=== PATIENT | male | born 1990 | race Caucasian/White ===

== ENCOUNTER 2020-08-22 04:02 | Emergency (ER) | payer MEDICARE ==
[~2020-08-22] VITALS: Ht 185.4 cm; Wt 147.0 kg
[2020-08-22] MEDS ORDERED: PREDNISONE 10 MG TAB ONE (04:13)
[2020-08-22] MEDS ORDERED: FAMOTIDINE 20 MG TAB ONE (04:13)
[2020-08-22] MEDS ORDERED: PREDNISONE 10 MG TAB PO ONE (04:15)
[2020-08-22] MEDS ORDERED: FAMOTIDINE 20 MG TAB PO ONE (04:15)
== END 2020-08-22 04:40 | disposition home or self-care (01) ==
LOC: ER 04:12
DX: T78.1XXA Other adverse food reactions, not elsewhere classified, initial encounter (principal)
CPT/HCPCS: 99283; J7512

== ENCOUNTER 2020-10-29 23:10 | Emergency (ER) | payer MEDICARE ==
[~2020-10-29] VITALS: Ht 185.4 cm; Wt 158.8 kg
[2020-10-30] MEDS ORDERED: DEXAMETHASONE SOD PHOS INJ 4 MG/ML VIAL IV ONE
[2020-10-30] MEDS ORDERED: HYDROCODONE/APAP 5MG-325MG TAB PO ONE
[2020-10-30] MEDS ORDERED: DEXAMETHASONE SOD PHOS INJ 4 MG/ML VIAL ONE (00:13)
[2020-10-30] MEDS ORDERED: HYDROCODONE/APAP 5MG-325MG TAB ONE (00:13)
== END 2020-10-30 00:55 | disposition home or self-care (01) ==
LOC: FSED 23:55
DX: M54.16 Radiculopathy, lumbar region (principal); F32.9 Major depressive disorder, single episode, unspecified; F98.8 Other specified behavioral and emotional disorders with onset usually occurring in childhood and adolescence
CPT/HCPCS: 81003; 99283; J1100

== ENCOUNTER 2020-12-04 23:42 | Emergency (ER) | payer MEDICARE ==
[~2020-12-04] VITALS: Ht 185.4 cm; Wt 158.8 kg
[2020-12-05 00:54] LABS: BASOPHILS # (AUTO) 0.1 (0.0-0.1); BASOPHILS % 0.4 % (0.0-1.0); EOSINOPHILS # (AUTO) 0.4 (0.0-0.4); EOSINOPHILS % 3.9 % (0.0-6.0); HEMATOCRIT 46.6 % (38.2-49.6); HEMOGLOBIN 15.4 g/dL (14.0-18.0); LYMPHOCYTES # (AUTO) 2.5 (1.0-3.2); LYMPHOCYTES % 22.4 % (18.0-39.1); MEAN CORPUSCULAR HEMOGLOBIN 29.4 pg (28-32); MEAN CORPUSCULAR VOLUME 88.9 fL (81-99); MONOCYTES # (AUTO) 0.8 (0.2-0.8); MONOCYTES % 6.6 % (4.4-11.3); NEUTROPHILS # (AUTO) 7.4 (2.1-6.9); NEUTROPHILS % 65.7 % (38.7-80.0); PLATELET COUNT 291 x10e3/uL (140-360); RED BLOOD COUNT 5.24 x10e6/uL (4.3-5.7); RED CELL DISTRIBUTION WIDTH 13.4 % (11.7-14.4)
[2020-12-05 00:55] LABS: CLARITY,URINE CLEAR (CLEAR); COLOR,URINE YELLOW (YELLOW); KETONES,URINE NEGATIVE (NEGATIVE); LEUKOCYTE ESTERASE ,URINE TRACE (NEGATIVE); NITRITE,URINE NEGATIVE (NEGATIVE); PROTEIN,URINE DIPSTICK NEGATIVE (NEGATIVE); URINE UROBILINOGEN 1 mg/dL (0.2 - 1)
[2020-12-05 00:59] LABS: BACTERIA,URINE FEW /HPF; EPITHELIAL CELLS,URINE FEW /LPF; INR 0.93; MUCUS,URINE FEW (RARE); PARTIAL THROMBOPLASTIN TIME 27.5 seconds (23.8-35.5); RBC,URINE 0-5 /HPF (0-5)
[2020-12-05 01:05] LABS: ALANINE AMINOTRANSFERASE 45 IU/L (0-55); ALBUMIN 3.8 g/dL (3.5-5.0); ALBUMIN/GLOBULIN RATIO 1.1 (0.8-2.0); ALKALINE PHOSPHATASE 104 IU/L (40-150); ANION GAP 12.9 mmol/L (8-16); BLOOD UREA NITROGEN 14 mg/dL (7-26); BUN/CREATININE RATIO 15 (6-25); CALCIUM 9.1 mg/dL (8.4-10.2); CARBON DIOXIDE 26 mmol/L (22-29); CHLORIDE 106 mmol/L (98-107); CREATININE, SERUM 0.96 mg/dL (0.72-1.25); EST GLOMERULAR FILTRATION RATE > 60 ML/MIN (60-); GLUCOSE 87 mg/dL (74-118); POTASSIUM 3.9 mmol/L (3.5-5.1); SODIUM 141 mmol/L (136-145)
[2020-12-05] MEDS ORDERED: METHYLPREDNISOLONE SOD SUCC 125 MG/2ML VIAL IV ONE (01:45)
[2020-12-05] MEDS ORDERED: HYDROCODONE/APAP 10MG-325MG TAB PO ONE (01:45)
[2020-12-05 02:58] VITALS: BP 129/71
== END 2020-12-05 03:02 | disposition left against medical advice (07) ==
LOC: ER 12-05 00:01
DX: M54.16 Radiculopathy, lumbar region (principal); Z88.2 Allergy status to sulfonamides; Z91.010 Allergy to peanuts; Z88.0 Allergy status to penicillin; Z91.013 Allergy to seafood
CPT/HCPCS: 36415; 80053; 81001; 85025; 85610; 85730; 99283; J2930; U0002

== ENCOUNTER 2021-01-03 19:29 | Emergency (ER) | payer MEDICARE ==
[~2021-01-03] VITALS: Ht 185.4 cm; Wt 158.8 kg
== END 2021-01-03 20:40 | disposition home or self-care (01) ==
LOC: FSED 20:14
DX: L30.9 Dermatitis, unspecified (principal); I10 Essential (primary) hypertension; F41.9 Anxiety disorder, unspecified; F32.9 Major depressive disorder, single episode, unspecified; M54.9 Dorsalgia, unspecified; G89.29 Other chronic pain; F98.8 Other specified behavioral and emotional disorders with onset usually occurring in childhood and adolescence
CPT/HCPCS: 99282

== ENCOUNTER 2021-03-24 23:06 | Emergency (ER) | payer MEDICARE ==
[~2021-03-24] VITALS: Ht 185.4 cm; Wt 158.8 kg
== END 2021-03-25 | disposition home or self-care (01) ==
LOC: ER 23:09
DX: M54.6 Pain in thoracic spine (principal); G89.29 Other chronic pain; I10 Essential (primary) hypertension; F41.9 Anxiety disorder, unspecified; F98.8 Other specified behavioral and emotional disorders with onset usually occurring in childhood and adolescence
CPT/HCPCS: 99282